=== PATIENT | female | born 1990 | race Two or more races ===

== ENCOUNTER 2022-08-18 09:44 | Observation (INO) | payer MEDICAID ==
[2022-08-18] MEDS ORDERED: PREN-96 PO (10:21)
[2022-08-18 10:27] LABS: Basophils # (auto) 0 10 ^3/uL (0-0.2); Basophils % (auto) 0.3 % (0.0-2.0); Eosinophils # (auto) 0.1 10 ^3/uL (0-0.8); Eosinophils % (auto) 1.5 % (0.0-7.0); Hematocrit 32.3 % (36.0-46.0); Hemoglobin 11.1 g/dL (12.2-16.2); Lymphocytes # (auto) 1.8 10 ^3/uL (0.4-5.4); Lymphocytes % (auto) 18.2 % (10.0-50.0); Mean Corpuscular Hemoglobin 28.6 pg (28.0-32.0); Mean Corpuscular Hgb Conc. 34.5 g/dL (32.0-36.0); Monocytes # (auto) 0.7 10 ^3/uL (0-1.3); Monocytes % (auto) 7.3 % (0.0-12.0); Neutrophils # (auto) 7.2 10 ^3/uL (1.6-8.6); Neutrophils % (auto) 72.7 % (37.0-80.0); Nucleated Red Blood Cells % 0.1 %; Red Blood Cells 3.89 10^6/uL (4.0-5.20); Red Cell Distribution Width 14.3 % (11.8-14.3); White Blood Cell 9.9 10^3/uL (4.4-10.8)
[2022-08-18 10:40] LABS: Albumin 2.9 g/dL (3.4-5.0); Calcium 8.6 mg/dL (8.5-10.1); Potassium 3.8 mmol/L (3.5-5.1)
[2022-08-18 10:43] LABS: BUN/Creatinine Ratio 14.9; Bilirubin, Total 0.2 mg/dL (0.2-1.0); Total Protein 7.1 g/dL (6.4-8.2)
== END 2022-08-18 12:04 | disposition home or self-care (01) ==
LOC: LDRP 09:44 → UNDOADMOB 09:44 → LDRP 09:48 → UNDODISOB 12:04
PROVIDERS: ADMIT Obstetrics & Gynecology; ATTEND Obstetrics & Gynecology
DX: O26.613 Liver and biliary tract disorders in pregnancy, third trimester (principal); K83.1 Obstruction of bile duct; Z3A.28 28 weeks gestation of pregnancy
CPT/HCPCS: 36415; 59025; 80053; 81002; 85025; 94760; G0378

== ENCOUNTER 2022-08-23 07:43 | Observation (INO) | payer MEDICAID ==
[~2022-08-23 07:43] MED LIST: PREN-96 PO
[2022-08-23] MEDS ORDERED: URSO300C9 PO (09:27)
== END 2022-08-23 09:39 | disposition home or self-care (01) ==
LOC: LDRP 08:05 → UNDOADMOB 08:05 → LDRP 08:39
PROVIDERS: ADMIT Obstetrics & Gynecology; ATTEND Obstetrics & Gynecology
DX: O26.613 Liver and biliary tract disorders in pregnancy, third trimester (principal); K83.1 Obstruction of bile duct; Z3A.29 29 weeks gestation of pregnancy
CPT/HCPCS: 59025; 76818; 81002; 94762; G0378

== ENCOUNTER 2022-08-26 08:03 | Observation (INO) | payer MEDICAID ==
[~2022-08-26 08:03] MED LIST changes: +URSO300C9 PO
[2022-08-26 10:48] LABS: Albumin 2.7 g/dL (3.4-5.0); BUN/Creatinine Ratio 17.5; Bilirubin, Total 0.3 mg/dL (0.2-1.0); Calcium 8.3 mg/dL (8.5-10.1); Potassium 3.8 mmol/L (3.5-5.1)
== END 2022-08-26 10:00 | disposition home or self-care (01) ==
LOC: UNDOADMOB 08:03 → LDRP 08:03
PROVIDERS: ADMIT Obstetrics & Gynecology; ATTEND Obstetrics & Gynecology
DX: O26.613 Liver and biliary tract disorders in pregnancy, third trimester (principal); K83.1 Obstruction of bile duct; O26.893 Other specified pregnancy related conditions, third trimester; R10.13 Epigastric pain; Z3A.29 29 weeks gestation of pregnancy
CPT/HCPCS: 36415; 59025; 76818; 80053; 81002; 94760; G0378

== ENCOUNTER 2022-08-30 15:16 | Observation (INO) | payer MEDICAID | END 2022-08-30 17:33 | disposition home or self-care (01) | LOC: LDRP 15:16 → UNDOADMOB 15:16 → LDRP 15:22 → UNDODISOB 17:33 | PROVIDERS: ADMIT Obstetrics & Gynecology; ATTEND Obstetrics & Gynecology | DX: O26.613 Liver and biliary tract disorders in pregnancy, third trimester (principal); K83.1 Obstruction of bile duct; O26.893 Other specified pregnancy related conditions, third trimester; R10.13 Epigastric pain; Z3A.29 29 weeks gestation of pregnancy | CPT/HCPCS: 59025; 76818; 81002; 94760; G0378 ==

== ENCOUNTER 2022-09-02 09:25 | Observation (INO) | payer MEDICAID | END 2022-09-02 16:34 | disposition home or self-care (01) | LOC: UNDOADMOB 15:09 → LDRP 15:09 → UNDODISOB 16:34 | PROVIDERS: ADMIT Obstetrics & Gynecology; ATTEND Obstetrics & Gynecology | DX: O26.613 Liver and biliary tract disorders in pregnancy, third trimester (principal); K83.1 Obstruction of bile duct; Z3A.30 30 weeks gestation of pregnancy | CPT/HCPCS: 59025; 76818; 81002; 94760; G0378 ==

== ENCOUNTER 2022-09-06 09:44 | Observation (INO) | payer MEDICAID | END 2022-09-06 12:40 | disposition home or self-care (01) | LOC: UNDOADMOB 11:05 → LDRP 11:05 | PROVIDERS: ADMIT Obstetrics & Gynecology; ATTEND Obstetrics & Gynecology | DX: O26.613 Liver and biliary tract disorders in pregnancy, third trimester (principal); K83.1 Obstruction of bile duct; Z3A.31 31 weeks gestation of pregnancy | CPT/HCPCS: 59025; 76818; 81002; 94760; G0378 ==

== ENCOUNTER 2022-09-10 08:00 | Observation (INO) | payer BC, MEDICAID | END 2022-09-10 10:17 | disposition home or self-care (01) | LOC: UNDOADMOB 08:00 → LDRP 08:00 | PROVIDERS: ADMIT Obstetrics & Gynecology; ATTEND Obstetrics & Gynecology | DX: O26.613 Liver and biliary tract disorders in pregnancy, third trimester (principal); K83.1 Obstruction of bile duct; Z3A.31 31 weeks gestation of pregnancy | CPT/HCPCS: 59025; 76818; 81002; 94760; G0378 ==

== ENCOUNTER 2022-09-16 10:31 | Observation (INO) | payer MEDICAID | END 2022-09-16 11:58 | disposition home or self-care (01) | LOC: LDRP 10:31 → UNDOADMOB 10:32 → UNDODISOB 11:58 | PROVIDERS: ADMIT Obstetrics & Gynecology; ATTEND Obstetrics & Gynecology | DX: O26.613 Liver and biliary tract disorders in pregnancy, third trimester (principal); K83.1 Obstruction of bile duct; Z3A.32 32 weeks gestation of pregnancy | CPT/HCPCS: 59025; 76818; 81002; 94760; G0378 ==

== ENCOUNTER 2022-09-19 00:21 | Observation (INO) | payer BC, MEDICAID ==
[~2022-09-19] VITALS: Ht 152.4 cm; Wt 83.9 kg
[2022-09-19] MEDS: TERBUTALINE SULFATE 1 MG/ML 1ML VIAL SC SCH ×2 (01:44→02:17)
[2022-09-19] MEDS ORDERED: LACTATED RINGER'S 1,000 ML IV ONE (02:15)
[2022-09-19] MEDS ORDERED: LACTATED RINGER'S 1,000 ML IV SCH (02:15)
[2022-09-19] MEDS ORDERED: BETAMETHASONE ACET (30mg/5ml) 5ml Vial 6mg/ml IM ONE (04:15)
[2022-09-19] MEDS ORDERED: NIFEdipine 10 MG CAP PO ONE (04:15)
[2022-09-19] MEDS ORDERED: NIF10C PO (07:18)
== END 2022-09-19 07:31 | disposition home or self-care (01) ==
LOC: LDRP 00:21
PROVIDERS: ADMIT Obstetrics & Gynecology; ATTEND Obstetrics & Gynecology
DX: O62.9 Abnormality of forces of labor, unspecified (principal); O26.893 Other specified pregnancy related conditions, third trimester; R10.10 Upper abdominal pain, unspecified; Z3A.32 32 weeks gestation of pregnancy
CPT/HCPCS: 59025; 81002; 94760; 96360; 96361; 96372; G0378; J0702; J3105; 96365; 96366

== ENCOUNTER 2022-09-20 04:06 | Observation (INO) | payer BC, MEDICAID ==
[~2022-09-20] VITALS: Ht 152.4 cm; Wt 84.8 kg
[~2022-09-20 04:06] MED LIST changes: +NIF10C PO
[2022-09-20] MEDS ORDERED: BETAMETHASONE ACET (30mg/5ml) 5ml Vial 6mg/ml IM ONE (04:15)
== END 2022-09-20 05:20 | disposition home or self-care (01) ==
LOC: LDRP 04:06
PROVIDERS: ADMIT Obstetrics & Gynecology; ATTEND Obstetrics & Gynecology
DX: O60.03 Preterm labor without delivery, third trimester (principal); Z3A.33 33 weeks gestation of pregnancy
CPT/HCPCS: 59025; 81002; 94760; 96372; G0378

== ENCOUNTER 2022-09-23 09:56 | Observation (INO) | payer BC, MEDICAID | END 2022-09-23 11:23 | disposition home or self-care (01) | LOC: UNDOADMOB 09:56 → LDRP 09:56 | PROVIDERS: ADMIT Obstetrics & Gynecology; ATTEND Obstetrics & Gynecology | DX: O26.613 Liver and biliary tract disorders in pregnancy, third trimester (principal); K83.1 Obstruction of bile duct; O99.333 Smoking (tobacco) complicating pregnancy, third trimester; F17.200 Nicotine dependence, unspecified, uncomplicated; Z3A.33 33 weeks gestation of pregnancy | CPT/HCPCS: 59025; 76818; 81002; 94760; G0378 ==

== ENCOUNTER 2022-09-27 09:00 | Observation (INO) | payer BC, MEDICAID ==
[~2022-09-27] VITALS: Ht 152.4 cm; Wt 83.9 kg
== END 2022-09-27 10:45 | disposition home or self-care (01) ==
LOC: UNDOADMOB 09:00 → LDRP 09:00 → UNDODISOB 10:45
PROVIDERS: ADMIT Obstetrics & Gynecology; ATTEND Obstetrics & Gynecology
DX: O26.613 Liver and biliary tract disorders in pregnancy, third trimester (principal); K83.1 Obstruction of bile duct; O24.419 Gestational diabetes mellitus in pregnancy, unspecified control; Z3A.34 34 weeks gestation of pregnancy
CPT/HCPCS: 59025; 76818; 81002; 82962; 94760; G0378

== ENCOUNTER 2022-09-30 09:27 | Observation (INO) | payer BC, MEDICAID ==
[~2022-09-30] VITALS: Ht 152.4 cm; Wt 68.0 kg
[2022-09-30] MEDS ORDERED: TERBUTALINE SULFATE 1 MG/ML 1ML VIAL SC SCH (11:15)
== END 2022-09-30 12:20 | disposition home or self-care (01) ==
LOC: LDRP 09:27 → UNDOADMOB 09:27 → LDRP 09:52
PROVIDERS: ADMIT Obstetrics & Gynecology; ATTEND Obstetrics & Gynecology
DX: O26.613 Liver and biliary tract disorders in pregnancy, third trimester (principal); K83.1 Obstruction of bile duct; O24.419 Gestational diabetes mellitus in pregnancy, unspecified control; O60.03 Preterm labor without delivery, third trimester; Z3A.34 34 weeks gestation of pregnancy
CPT/HCPCS: 59025; 76818; 81002; 82948; 82962; 94760; 96372; G0378; J3105

== ENCOUNTER 2022-10-04 09:22 | Observation (INO) | payer BC, MEDICAID | END 2022-10-04 11:24 | disposition home or self-care (01) | LOC: LDRP 09:22 → UNDOADMOB 09:22 → LDRP 09:26 → UNDODISOB 11:24 | PROVIDERS: ADMIT Obstetrics & Gynecology; ATTEND Obstetrics & Gynecology | DX: O24.419 Gestational diabetes mellitus in pregnancy, unspecified control (principal); O26.613 Liver and biliary tract disorders in pregnancy, third trimester; K83.1 Obstruction of bile duct; Z3A.35 35 weeks gestation of pregnancy | CPT/HCPCS: 59025; 76817; 76818; 81002; 82948; 82962; 94760; G0378 ==

== ENCOUNTER 2022-10-07 09:05 | Observation (INO) | payer BC, MEDICAID | END 2022-10-07 10:56 | disposition home or self-care (01) | LOC: LDRP 09:05 → UNDOADMOB 09:09 → UNDODISOB 10:56 | PROVIDERS: ADMIT Obstetrics & Gynecology; ATTEND Obstetrics & Gynecology | DX: O26.613 Liver and biliary tract disorders in pregnancy, third trimester (principal); K83.1 Obstruction of bile duct; O24.419 Gestational diabetes mellitus in pregnancy, unspecified control; O60.03 Preterm labor without delivery, third trimester; Z3A.35 35 weeks gestation of pregnancy | CPT/HCPCS: 59025; 76817; 76818; 81002; 82948; 82962; 94760; G0378 ==

== ENCOUNTER 2022-10-11 09:14 | Observation (INO) | payer BC, MEDICAID ==
[~2022-10-11 09:14] MED LIST changes: -NIF10C PO
== END 2022-10-11 11:00 | disposition home or self-care (01) ==
LOC: UNDOADMOB 09:14 → LDRP 09:14 → UNDODISOB 11:00
PROVIDERS: ADMIT Obstetrics & Gynecology; ATTEND Obstetrics & Gynecology
DX: O24.419 Gestational diabetes mellitus in pregnancy, unspecified control (principal); O26.613 Liver and biliary tract disorders in pregnancy, third trimester; K83.1 Obstruction of bile duct; O60.03 Preterm labor without delivery, third trimester; Z3A.36 36 weeks gestation of pregnancy
CPT/HCPCS: 59025; 76818; 81002; 82948; 82962; 94760; G0378

== ENCOUNTER 2022-10-14 09:05 | Observation (INO) | payer BC, MEDICAID ==
[~2022-10-14] VITALS: Ht 152.4 cm; Wt 84.8 kg
[2022-10-14] MEDS ORDERED: METF-370 PO (11:09)
== END 2022-10-14 11:25 | disposition home or self-care (01) ==
LOC: LDRP 09:05 → UNDOADMOB 09:19 → LDRP 09:19 → UNDODISOB 11:25
PROVIDERS: ADMIT Obstetrics & Gynecology; ATTEND Obstetrics & Gynecology
DX: O24.419 Gestational diabetes mellitus in pregnancy, unspecified control (principal); O26.613 Liver and biliary tract disorders in pregnancy, third trimester; K83.1 Obstruction of bile duct; O60.03 Preterm labor without delivery, third trimester; Z3A.36 36 weeks gestation of pregnancy; Z79.899 Other long term (current) drug therapy
CPT/HCPCS: 59025; 76818; 81002; 82948; 82962; 87086; 94760; G0378

== ENCOUNTER 2022-10-17 12:00 | Inpatient (IN) | payer BC, MEDICAID ==
[2022-10-17] VITALS: BP 115/60
[~2022-10-17] VITALS: Ht 152.4 cm; Wt 84.8 kg
[~2022-10-17 12:00] MED LIST changes: +METF-370 PO
[2022-10-17] MEDS ORDERED: DERMOPLAST 60ML BOTTLE TOP PRN (12:15)
[2022-10-17] MEDS ORDERED: PROMETHAZINE HCL 25 MG/ML 1ML IM PRN (12:15)
[2022-10-17] MEDS ORDERED: PHISODERM TOP SOLN 240ML BTL TOP PRN (12:15)
[2022-10-17] MEDS ORDERED: LIDOCAINE 2%HCL (LOCAL ANESTH.) INJ 20ML MDV IJ PRN (12:15)
[2022-10-17] MEDS ORDERED: BUTORPHANOL TARTRATE 2 MG/1 ML VIAL IV PRN ×2 (12:15)
[2022-10-17] MEDS ORDERED: ACCU-CHEK COMFORT CURVE STRIP VI PRN (12:15)
[2022-10-17] MEDS ORDERED: WITCH HAZEL-GLYCERIN PAD TOP PRN (12:15)
[2022-10-17] MEDS ORDERED: PROMETHAZINE HCL 25 MG/ML 1ML IV PRN (12:15)
[2022-10-17] MEDS: LACTATED RINGER'S 1,000 ML IV SCH (13:04)
[2022-10-17 13:08] LABS: Basophils # (auto) 0 10 ^3/uL (0-0.2); Eosinophils # (auto) 0.1 10 ^3/uL (0-0.8); Mean Corpuscular Hgb Conc. 32.7 g/dL (32.0-36.0); Monocytes # (auto) 0.6 10 ^3/uL (0-1.3); Neutrophils # (auto) 6.9 10 ^3/uL (1.6-8.6); Red Blood Cells 3.88 10^6/uL (4.0-5.20); White Blood Cell 8.9 10^3/uL (4.4-10.8)
[2022-10-17 13:10] LABS: Basophils % (auto) 0.2 % (0.0-2.0); Eosinophils % (auto) 1.4 % (0.0-7.0); Hematocrit 30.4 % (36.0-46.0); Hemoglobin 9.9 g/dL (12.2-16.2); Lymphocytes # (auto) 1.3 10 ^3/uL (0.4-5.4); Lymphocytes % (auto) 14.2 % (10.0-50.0); Mean Corpuscular Hemoglobin 25.6 pg (28.0-32.0); Mean Corpuscular Volume 78.4 fL (80.0-100.0); Monocytes % (auto) 6.6 % (0.0-12.0); Neutrophils % (auto) 77.6 % (37.0-80.0); Nucleated Red Blood Cells % 0.2 %
[2022-10-17 13:11] LABS: Urine Bacteria MANY /hpf (None Seen); Urine Blood Negative /uL (Negative); Urine Mucus FEW (None Seen); Urine Specific Gravity 1.015 (1.001-1.035); Urine WBC 13 /hpf (0 - 5)
[2022-10-17 13:32] LABS: INR 0.94 (0.9-1.15); Partial Thromboplastin Time 26.4 sec (24.6-33.4)
[2022-10-17 13:42] LABS: Albumin 2.6 g/dL (3.4-5.0); Calcium 8.4 mg/dL (8.5-10.1); Potassium 3.4 mmol/L (3.5-5.1)
[2022-10-17 13:48] LABS: BUN/Creatinine Ratio 10.5 (10.0-20.0); Bilirubin, Total 0.3 mg/dL (0.2-1.0); Total Protein 6.6 g/dL (6.4-8.2)
[2022-10-17 13:50] LABS: Alcohol, Urine < 3.0 mg/dL (0-10); Amphetamine Screen, Urine NEGATIVE (NEGATIVE); Barbiturate Scree,Urine NEGATIVE (NEGATIVE); Benzodiazephine Screen, Urine NEGATIVE (NEGATIVE); Cannabinoid Screen, Urine NEGATIVE (NEGATIVE); Cocaine Screen, Urine NEGATIVE (NEGATIVE); Opiate Scree,Urine NEGATIVE (NEGATIVE); Phencyclidine Screen, Urine NEGATIVE (NEGATIVE)
[2022-10-17] MEDS: miSOPROStol 50 MCG per PRE-CUT 1/2 TAB PO PRN ×3 (14:28→23:58)
[2022-10-17] MEDS ORDERED: miSOPROStol 100 mcg TAB SL PRN (15:15)
[2022-10-17] MEDS ORDERED: ONDANSETRON HCL 4 MG/2 ML VIAL IV PRN (15:15)
[2022-10-17] MEDS ORDERED: MINERAL OIL TOPICAL 10ml TOP PRN (15:15)
[2022-10-17] MEDS ORDERED: ACETAMINOPHEN 325 MG TAB PO PRN (15:15)
[2022-10-17] MEDS ORDERED: METHYLERGONOVINE MALEATE 0.2 MG/ML AMP IM PRN (15:15)
[2022-10-17] MEDS ORDERED: TRANEXAMIC ACID 1,000 MG in SODIUM CHL 0.9% 100 ML IV PRN (15:15)
[2022-10-17] MEDS ORDERED: diphenhdrAMINE HCL 50 MG/1 ML VL IV PRN (15:15)
[2022-10-17] MEDS ORDERED: CARBOPROST TROMETHAMINE 250 MCG/1ML VIAL IM PRN (15:15)
[2022-10-17] MEDS ORDERED: DIPHENOXYLATE W/ATROPINE 2.5 MG TAB PO SCH (18:00)
[2022-10-17 19:26] VITALS: BP 105/67
[2022-10-18] MEDS: LACTATED RINGER'S 1,000 ML IV SCH ×3 (00:20→21:19)
[2022-10-18] MEDS: miSOPROStol 50 MCG per PRE-CUT 1/2 TAB PO PRN ×3 (04:40→13:35)
[2022-10-18] MEDS: URSODIOL 300 MG CAP PO SCH (11:51)
[2022-10-18] MEDS ORDERED: DINOPROSTONE 10MG VAG SUPP PV ONE (18:00)
[2022-10-18] MEDS ORDERED: URSODIOL 300 MG CAP PO SCH (22:00)
[2022-10-19] MEDS: URSODIOL 300 MG CAP PO SCH ×2 (00:22→12:07)
[2022-10-19] MEDS: LACTATED RINGER'S 1,000 ML IV SCH ×2 (05:09→13:59)
[2022-10-19] MEDS ORDERED: LACT. RINGERS/OXYTOCIN 20UNITS 500 ML IV ONE ×2 (08:00→08:30)
[2022-10-19] MEDS ORDERED: LACT. RINGERS/OXYTOCIN 20UNITS 1,000 ML IV SCH (08:00)
[2022-10-19 08:06] LABS: RPR Non Reactive (Non Reactive)
[2022-10-19] MEDS ORDERED: ROPIVACAINE HCL 200 ML EPI SCH ×2 (13:00→14:45)
[2022-10-19] MEDS ORDERED: Lidocaine W-Epinephrine 1.5%-1:200,000 INJ 10ml Vial IJ ONE ×2 (13:00→14:45)
[2022-10-19] MEDS ORDERED: ePHEDrine SULFATE 50 MG/ML AMP IV ONE ×2 (13:00→14:45)
[2022-10-19] MEDS ORDERED: NALOXONE HCL 0.4 MG/ML VIAL IV ONE ×2 (13:00→14:45)
[2022-10-19] MEDS ORDERED: fentaNYL CITRATE 100 MCG/2 ML VL IV ONE ×2 (13:00→14:45)
[2022-10-19] MEDS ORDERED: LACTATED RINGER'S 1,000 ML IV ONE (13:00)
[2022-10-19] MEDS ORDERED: IBUPROFEN 600 MG TAB PO PRN (16:45)
[2022-10-19] MEDS ORDERED: ONDANSETRON ODT 4 MG TAB PO PRN (16:45)
[2022-10-19] MEDS ORDERED: ACETAMINOPHEN 325 MG TAB PO PRN (16:45)
[2022-10-19 18:40] VITALS: BP 121/69
[2022-10-19] MEDS ORDERED: DOCUSATE SOD 100 MG CAP PO SCH (22:00)
[2022-10-19 22:50] VITALS: BP 112/65
[2022-10-20 03:10] VITALS: BP 104/62
[2022-10-20 07:00] VITALS: BP 99/58
[2022-10-20 11:00] VITALS: BP 107/77
== END 2022-10-20 18:45 | disposition home or self-care (01) | DRG 805 ==
LOC: LDRP 12:00
PROVIDERS: ADMIT Obstetrics & Gynecology; ATTEND Obstetrics & Gynecology
PROC: 10E0XZZ Delivery of Products of Conception, External Approach (ICD-10-PCS; principal; 2022-10-19)
PROC: 0HQ9XZZ Repair Perineum Skin, External Approach (ICD-10-PCS; 2022-10-19)
DX: O26.62 Liver and biliary tract disorders in childbirth (principal); K83.1 Obstruction of bile duct; Z37.0 Single live birth; O24.429 Gestational diabetes mellitus in childbirth, unspecified control; O99.02 Anemia complicating childbirth; D50.9 Iron deficiency anemia, unspecified; N83.202 Unspecified ovarian cyst, left side; Z3A.36 36 weeks gestation of pregnancy; O70.0 First degree perineal laceration during delivery
CPT/HCPCS: 36415; 59409; 62282; 80053; 80307; 81001; 81002; 82948; 82962; 85025; 85610; 85730; 86592; 86850; 86900; 86901; 94760; 94762; 96360; 96361; 96366; G0378; J2590

== ENCOUNTER 2023-11-24 07:41 | Observation (INO) | payer MEDICAID ==
[~2023-11-24] VITALS: Ht 152.4 cm; Wt 84.4 kg
[~2023-11-24 07:41] MED LIST changes: -METF-370 PO; -URSO300C9 PO
[2023-11-24] MEDS ORDERED: PREN1TAB59 PO (11:25)
== END 2023-11-24 12:14 | disposition home or self-care (01) ==
LOC: UNDOADMOB 11:06 → LDRP 11:06
PROVIDERS: ADMIT Obstetrics & Gynecology; ATTEND Obstetrics & Gynecology
DX: O35.8XX0 Maternal care for other (suspected) fetal abnormality and damage, not applicable or unspecified (principal); Z3A.33 33 weeks gestation of pregnancy
CPT/HCPCS: 59025; 76818; 81002; 94760; G0378

== ENCOUNTER 2023-11-28 08:05 | Observation (INO) | payer MEDICAID | END 2023-11-28 09:18 | disposition home or self-care (01) | LOC: UNDOADMOB 08:05 → LDRP 08:05 → UNDODISOB 09:18 | PROVIDERS: ADMIT Obstetrics & Gynecology; ATTEND Obstetrics & Gynecology | DX: O36.8330 Maternal care for abnormalities of the fetal heart rate or rhythm, third trimester, not applicable or unspecified (principal); Z3A.34 34 weeks gestation of pregnancy | CPT/HCPCS: 59025; 76818; 81002; 87086; 94760; G0378 ==

== ENCOUNTER 2023-12-01 08:01 | Observation (INO) | payer MEDICAID | END 2023-12-01 12:32 | disposition home or self-care (01) | LOC: LDRP 10:58 → UNDOADMOB 10:58 → LDRP 11:01 → UNDODISOB 12:32 | PROVIDERS: ADMIT Obstetrics & Gynecology; ATTEND Obstetrics & Gynecology | DX: O35.8XX0 Maternal care for other (suspected) fetal abnormality and damage, not applicable or unspecified (principal); O99.891 Other specified diseases and conditions complicating pregnancy; M54.9 Dorsalgia, unspecified; Z3A.34 34 weeks gestation of pregnancy | CPT/HCPCS: 59025; 76818; 81002; G0378 ==

== ENCOUNTER 2023-12-06 08:10 | Observation (INO) | payer MEDICAID | END 2023-12-06 10:16 | disposition home or self-care (01) | LOC: LDRP 08:10 → UNDOADMOB 08:10 → LDRP 08:21 → UNDODISOB 10:16 | PROVIDERS: ADMIT Obstetrics & Gynecology; ATTEND Obstetrics & Gynecology | DX: O36.8330 Maternal care for abnormalities of the fetal heart rate or rhythm, third trimester, not applicable or unspecified (principal); O26.893 Other specified pregnancy related conditions, third trimester; R10.2 Pelvic and perineal pain; Z3A.35 35 weeks gestation of pregnancy | CPT/HCPCS: 59025; 76818; 81002; 94760; G0378 ==

== ENCOUNTER 2023-12-09 08:23 | Observation (INO) | payer MEDICAID | END 2023-12-09 12:51 | disposition home or self-care (01) | LOC: UNDOADMOB 11:27 → LDRP 11:27 → UNDODISOB 12:51 | PROVIDERS: ADMIT Obstetrics & Gynecology; ATTEND Obstetrics & Gynecology | DX: O35.8XX0 Maternal care for other (suspected) fetal abnormality and damage, not applicable or unspecified (principal); O34.83 Maternal care for other abnormalities of pelvic organs, third trimester; N83.209 Unspecified ovarian cyst, unspecified side; O26.893 Other specified pregnancy related conditions, third trimester; R19.00 Intra-abdominal and pelvic swelling, mass and lump, unspecified site; Z3A.35 35 weeks gestation of pregnancy | CPT/HCPCS: 59025; 76818; 81002; 94760; G0378 ==

== ENCOUNTER 2023-12-13 16:05 | Observation (INO) | payer MEDICAID ==
[~2023-12-13] VITALS: Ht 152.4 cm; Wt 85.3 kg
[2023-12-13] MEDS ORDERED: FERR-7 PO (18:31)
== END 2023-12-13 19:27 | disposition home or self-care (01) ==
LOC: UNDOADMOB 16:05 → LDRP 16:05 → UNDODISOB 19:27
PROVIDERS: ADMIT Obstetrics & Gynecology; ATTEND Obstetrics & Gynecology
DX: O36.8330 Maternal care for abnormalities of the fetal heart rate or rhythm, third trimester, not applicable or unspecified (principal); Z3A.36 36 weeks gestation of pregnancy
CPT/HCPCS: 59025; 76818; 81002; 94760; G0378

== ENCOUNTER 2023-12-17 08:53 | Observation (INO) | payer MEDICAID ==
[~2023-12-17 08:53] MED LIST changes: +FERR-7 PO
== END 2023-12-17 11:05 | disposition home or self-care (01) ==
LOC: LDRP 08:53
PROVIDERS: ADMIT Obstetrics & Gynecology; ATTEND Obstetrics & Gynecology
DX: O36.8330 Maternal care for abnormalities of the fetal heart rate or rhythm, third trimester, not applicable or unspecified (principal); Z3A.36 36 weeks gestation of pregnancy
CPT/HCPCS: 59025; 76818; 81002; 94760; G0378

== ENCOUNTER 2023-12-20 19:05 | Observation (INO) | payer MEDICAID ==
[~2023-12-20] VITALS: Ht 152.4 cm; Wt 86.6 kg
== END 2023-12-20 20:41 | disposition home or self-care (01) ==
LOC: LDRP 19:05
PROVIDERS: ADMIT Obstetrics & Gynecology; ATTEND Obstetrics & Gynecology
DX: O35.8XX0 Maternal care for other (suspected) fetal abnormality and damage, not applicable or unspecified (principal); Z3A.37 37 weeks gestation of pregnancy
CPT/HCPCS: 59025; 76818; 81002; 94760; G0378

== ENCOUNTER 2023-12-24 09:49 | Observation (INO) | payer MEDICAID | END 2023-12-24 11:12 | disposition home or self-care (01) | LOC: LDRP 09:49 | PROVIDERS: ADMIT Obstetrics & Gynecology; ATTEND Obstetrics & Gynecology | DX: O36.8330 Maternal care for abnormalities of the fetal heart rate or rhythm, third trimester, not applicable or unspecified (principal); Z3A.37 37 weeks gestation of pregnancy | CPT/HCPCS: 59025; 76818; 81002; 94760; G0378 ==

== ENCOUNTER 2023-12-27 16:13 | Observation (INO) | payer MEDICAID | END 2023-12-27 18:15 | disposition home or self-care (01) | LOC: LDRP 16:13 → UNDOADMOB 16:13 → LDRP 16:30 → UNDODISOB 18:15 | PROVIDERS: ADMIT Obstetrics & Gynecology; ATTEND Obstetrics & Gynecology | DX: O36.8330 Maternal care for abnormalities of the fetal heart rate or rhythm, third trimester, not applicable or unspecified (principal); O23.593 Infection of other part of genital tract in pregnancy, third trimester; Z3A.38 38 weeks gestation of pregnancy | CPT/HCPCS: 59025; 76818; 81002; 94760; G0378 ==

== ENCOUNTER 2023-12-30 20:06 | Observation (INO) | payer MEDICAID | END 2023-12-30 21:39 | disposition home or self-care (01) | LOC: LDRP 20:06 | PROVIDERS: ADMIT Obstetrics & Gynecology; ATTEND Obstetrics & Gynecology | DX: O35.8XX0 Maternal care for other (suspected) fetal abnormality and damage, not applicable or unspecified (principal); O26.893 Other specified pregnancy related conditions, third trimester; R19.00 Intra-abdominal and pelvic swelling, mass and lump, unspecified site; Z3A.38 38 weeks gestation of pregnancy | CPT/HCPCS: 59025; 76818; 81002; 94760; G0378 ==

== ENCOUNTER 2024-01-03 07:46 | Inpatient (IN) | payer MEDICAID ==
[~2024-01-03] VITALS: Ht 152.4 cm; Wt 88.0 kg
[2024-01-03] MEDS: LACT. RINGERS/OXYTOCIN 20UNITS 1,000 ML IV ONE (07:57)
[2024-01-03] MEDS ORDERED: TERBUTALINE SULFATE 1 MG/ML 1ML VIAL SC PRN (08:00)
[2024-01-03] MEDS ORDERED: BUTORPHANOL TARTRATE 2 MG/1 ML VIAL IV PRN ×2 (08:00)
[2024-01-03] MEDS ORDERED: LIDOCAINE 2%HCL (LOCAL ANESTH.) INJ 20ML MDV IJ PRN (08:00)
[2024-01-03] MEDS: CARBOPROST TROMETHAMINE 250 MCG/1ML VIAL IM ONE (08:13)
[2024-01-03] MEDS: DIPHENOXYLATE W/ATROPINE 2.5 MG TAB ONE (08:16)
[2024-01-03 09:07] LABS: Urine Bacteria None Seen /hpf (None Seen)
[2024-01-03 09:21] LABS: Urine Blood 3+ /uL (Negative); Urine Clarity Turbid (Clear); Urine Color Light-Orange (Yellow); Urine Hyaline Cast FEW /lpf (0 - 2); Urine Mucus FEW (None Seen); Urine Protein, UAD 2+ (Negative); Urine Specific Gravity 1.023 (1.001-1.035); Urine Urobilinogen Normal (Negative); Urine WBC 4 /hpf (0 - 5)
[2024-01-03 09:23] LABS: Basophils # (auto) 0 10 ^3/uL (0-0.2); Eosinophils # (auto) 0.1 10 ^3/uL (0-0.8); Hemoglobin 9.6 g/dL (12.2-16.2); Lymphocytes # (auto) 1.5 10 ^3/uL (0.4-5.4); Mean Corpuscular Hgb Conc. 31.9 g/dL (32.0-36.0); Monocytes # (auto) 0.6 10 ^3/uL (0-1.3)
[2024-01-03 09:24] LABS: Basophils % (auto) 0.3 % (0.0-2.0); Lymphocytes % (auto) 14.1 % (10.0-50.0); Mean Corpuscular Hemoglobin 23.8 pg (28.0-32.0); Mean Corpuscular Volume 74.7 fL (80.0-100.0); Monocytes % (auto) 5.2 % (0.0-12.0); Neutrophils # (auto) 8.6 10 ^3/uL (1.6-8.6); Neutrophils % (auto) 79.4 % (37.0-80.0); Nucleated Red Blood Cells % 0.2 %; Red Blood Cells 4.01 10^6/uL (4.0-5.20); Red Cell Distribution Width 17.9 % (11.8-14.3); White Blood Cell 10.8 10^3/uL (4.4-10.8)
[2024-01-03 09:34] LABS: INR 0.98 (0.9-1.15); Partial Thromboplastin Time 25.6 SEC (24.5-34.5); Prothrombin Time 10.4 sec (9.3-11.8)
[2024-01-03 09:36] LABS: Amphetamine Screen, Urine Neg (NEGATIVE); Barbiturate Scree,Urine Neg (NEGATIVE); Benzodiazephine Screen, Urine Neg (NEGATIVE); Cocaine Screen, Urine Neg (NEGATIVE)
[2024-01-03 09:37] LABS: Cannabinoid Screen, Urine Neg (NEGATIVE); Opiate Scree,Urine Neg (NEGATIVE); Phencyclidine Screen, Urine Neg (NEGATIVE)
[2024-01-03 09:40] LABS: Alanine Aminotransferase 16 U/L (7-40); Albumin 3.7 g/dL (3.2-4.8); Alkaline Phosphatase 104 U/L (46-116); Anion Gap 10 (5-15); Aspartate Aminotransferase 21 U/L (13-40); BUN/Creatinine Ratio 12.5 (10.0-20.0); Blood Urea Nitrogen 7 mg/dL (9-23); Calcium 8.8 mg/dL (8.7-10.4); Carbon Dioxide 20 mmol/L (20-30); Chloride 107 mmol/L (98-107); Glucose 98 mg/dL (74-106); Potassium 3.9 mmol/L (3.5-5.1); Sodium 137 mmol/L (136-145)
[2024-01-03 09:41] LABS: Bilirubin, Total 0.5 mg/dL (0.2-1.0); Total Protein 6.1 g/dL (5.7-8.2)
[2024-01-03] MEDS: WITCH HAZEL-GLYCERIN PAD TOP PRN (09:47)
[2024-01-03] MEDS: PHISODERM TOP SOLN 240ML BTL TOP PRN (09:47)
[2024-01-03] MEDS: DERMOPLAST 60ML BOTTLE TOP PRN (09:47)
[2024-01-03] MEDS: ONDANSETRON HCL 4 MG/2 ML VIAL ONE (09:48)
[2024-01-03] MEDS: fentaNYL CITRATE 100 MCG/2 ML VL ONE (09:52)
[2024-01-03] MEDS: LACT. RINGERS/OXYTOCIN 20UNITS 500 ML IV ONE ×2 (09:53→09:56)
[2024-01-03] MEDS: LIDOCAINE 2%HCL (LOCAL ANESTH.) INJ 20ML MDV ONE (09:58)
[2024-01-03] MEDS: LACTATED RINGER'S 1,000 ML IV SCH (09:58)
[2024-01-03] MEDS ORDERED: ACETAMINOPHEN 325 MG TAB PO PRN (10:15)
[2024-01-03 11:05] VITALS: BP 128/76; PULSE 76; RESP 18; TEMP 98.1
[2024-01-03 15:15] VITALS: BP 112/60; PULSE 80; RESP 20; TEMP 98.3; O2SAT 97
[2024-01-03] MEDS ORDERED: OXYTOCIN 10UNIT/ML 1ML VIAL IV ONE (15:43)
[2024-01-03 19:00] VITALS: BP 112/64; PULSE 86; RESP 16; TEMP 98.2; O2SAT 98
[2024-01-03] MEDS: MEASLES, MUMPS & RUBELLA VAC(MMRII) 0.5ML SC ONE (19:00)
[2024-01-03] MEDS ORDERED: ASCO1TAB27 PO (20:01)
[2024-01-03] MEDS ORDERED: FERR-7 PO (20:01)
[2024-01-03] MEDS ORDERED: DOCU-265 PO (20:01)
[2024-01-03] MEDS: DOCUSATE SOD 100 MG CAP PO SCH (21:56)
[2024-01-03 23:00] VITALS: BP 111/67; PULSE 84; RESP 14; TEMP 98.6; O2SAT 98
[2024-01-04] MEDS: IBUPROFEN 600 MG TAB PO PRN (00:41)
[2024-01-04 01:34] VITALS: BP 111/67; PULSE 84; RESP 14; TEMP 98.6; O2SAT 98
[2024-01-04 03:00] VITALS: BP 116/64; PULSE 79; RESP 16; TEMP 98.3; O2SAT 98
[2024-01-04] MEDS: ceFAZolin 2 GM/D5W50ml 50 ML IV ONE (04:49)
[2024-01-04 07:07] LABS: RPR Non Reactive (Non Reactive)
[2024-01-04 07:18] VITALS: BP 95/52; PULSE 64; RESP 16; TEMP 98.2; O2SAT 98
[2024-01-04 08:34] LABS: Basophils # (auto) 0 10 ^3/uL (0-0.2); Basophils % (auto) 0.4 % (0.0-2.0); Monocytes # (auto) 0.7 10 ^3/uL (0-1.3); Red Blood Cells 3.33 10^6/uL (4.0-5.20)
[2024-01-04 08:35] LABS: Eosinophils # (auto) 0.2 10 ^3/uL (0-0.8); Eosinophils % (auto) 2.1 % (0.0-7.0); Hematocrit 24.9 % (36.0-46.0); Lymphocytes % (auto) 17.7 % (10.0-50.0); Mean Corpuscular Volume 74.9 fL (80.0-100.0); Monocytes % (auto) 6.3 % (0.0-12.0); Neutrophils # (auto) 8.3 10 ^3/uL (1.6-8.6); Neutrophils % (auto) 73.5 % (37.0-80.0); Nucleated Red Blood Cells % 0.2 %; Red Cell Distribution Width 17.7 % (11.8-14.3); White Blood Cell 11.2 10^3/uL (4.4-10.8)
[2024-01-04] MEDS: PRENATAL VITAMIN TAB PO SCH (10:00)
[2024-01-04 11:25] VITALS: BP 115/72; PULSE 71; RESP 18; TEMP 98.7; O2SAT 98
[2024-01-04 14:56] VITALS: BP 107/58; PULSE 79; RESP 18; TEMP 97.7; O2SAT 97
[2024-01-04] MEDS ORDERED: IBU600T PO (15:48)
[2024-01-06 19:06] LABS: Treponema pallidum Ab (FTA-Ab) Non Reactive (Non Reactive)
== END 2024-01-04 16:45 | disposition home or self-care (01) | DRG 560 ==
LOC: LDRP 07:46
PROVIDERS: ADMIT Obstetrics & Gynecology; ATTEND Obstetrics & Gynecology
PROC: 10E0XZZ Delivery of Products of Conception, External Approach (ICD-10-PCS; principal; 2024-01-03)
PROC: 0W8NXZZ Division of Female Perineum, External Approach (ICD-10-PCS; 2024-01-03)
PROC: 0HQ9XZZ Repair Perineum Skin, External Approach (ICD-10-PCS; 2024-01-03)
DX: O70.0 First degree perineal laceration during delivery (principal); Z37.0 Single live birth; D62 Acute posthemorrhagic anemia; Z3A.39 39 weeks gestation of pregnancy; O72.1 Other immediate postpartum hemorrhage; Z86.32 Personal history of gestational diabetes; O90.81 Anemia of the puerperium
CPT/HCPCS: 36415; 59409; 80053; 80307; 81001; 85025; 85610; 85730; 86592; 86803; 86850; 86900; 86901; 94760; 96360; 96365; 96366; 96372; G0378; J2405; J2590; J7060